=== PATIENT | female | born 1980 | race Two or more races ===

== ENCOUNTER 2017-07-17 17:31 | Emergency (ER) | payer SELFPAY ==
[2017-07-17] MEDS ORDERED: IBUPROFEN 600 MG TAB PO ONE (18:07)
[2017-07-17] MEDS ORDERED: NS 1,000 ML IV ONE ×2 (18:16)
--- NOTE | 2017-07-17 18:20 | EDPHY ---
H & P Time Seen by Provider: 07/17/17 18:05 HPI/ROS: CHIEF COMPLAINT: Sore throat fever and chills HISTORY OF PRESENT ILLNESS: Symptoms for 2 days. Moderate sore throat worse with swallowing associated with fever and body aches. Radiates the left neck and left ears associated with nausea. Able to swallow, no change in voice. REVIEW OF SYSTEMS: Eye: no change in vision ENT: No ear symptoms. Cardiac: no chest pain or syncope Pulmonary: no cough or SOB Abdomen: no vomiting, diarrhea, abdominal pain Musculoskeletal: No neck stiffness Skin: no rash Neuro: no headache Constitutional: HPI : no urinary symptoms A comprehensive 10 point review of systems is otherwise negative aside from elements mentioned in the history of present illness. PAST MEDICAL HISTORY: Includes hysterectomy and appendectomy and cholecystectomy. Renal colic Social history: Nonsmoker General Appearance: Alert and conversant, cooperative. Eyes: No scleral icterus. ENT, Mouth: Tonsillar swelling with some exudate. No trismus. No gum swelling. No stridor or drooling and normal uvula. Normal tympanic membranes bilaterally. Respiratory: Normal respiratory effort, breath sounds equal, lungs are clear to auscultation. Cardiovascular: Regular rate and rhythm. Gastrointestinal: Abdomen is soft and non tender. Neurological: Alert and oriented x3. Normally conversant. Face symmetric, normal movement and sensation in all extremities. Skin: Warm and dry, no rashes. Musculoskeletal: Normal range of motion of the neck. Some lymphadenopathy bilaterally. Psychiatric: Not agitated. Emergency Department course/MDM: Ibuprofen 600, 2 L IV normal saline. Strep screening. Strep negative, dexamethasone discussed and consented for treatment of symptoms. I think retropharyngeal abscess or other deep space neck infection is unlikely. Smoking Status: Never smoked Constitutional: Initial Vital Signs Temperature (C) 37.3 C 07/17/17 17:33 Heart Rate 132 H 07/17/17 17:33 Respiratory Rate 14 07/17/17 17:33 Blood Pressure 146/85 H 07/17/17 17:33 O2 Sat (%) 96 07/17/17 17:33 O2 Delivery Mode Room Air Allergies/Adverse Reactions: zoysn Allergy (Uncoded 10/25/16 15:18) Home Medications: Medication Instructions Recorded IRON 10/25/16 Ondansetron Odt [Zofran Odt] 4 mg PO Q4PRN PRN #4 tab 10/25/16 oxyCODONE/APAP 5/325 [Percocet 1 tab PO Q4-6PRN PRN #14 tab 10/25/16 5/325] Medical Decision Making Differential Diagnosis: Differential considered including but not limited to strep throat, mono, retropharyngeal abscess, epiglottitis. - Data Points Laboratory Results: 07/17/17 07/17/17 Unknown 18:15 Group A Strep Screen NEGATIVE (NEGATIVE) Group A Strep DNA Pending Medications Given: Discontinued Medications Dexamethasone (Decadron Injection) 10 mg IVP EDNOW ONE Stop: 07/17/17 18:47 Last Admin: 07/17/17 18:58 Dose: 10 mg Sodium Chloride (Ns) 1,000 mls @ 0 mls/hr IV ONCE ONE; Wide Open PRN Reason: Protocol Stop: 07/17/17 18:17 Last Admin: 07/17/17 18:17 Dose: 1,000 mls Sodium Chloride (Ns) 1,000 mls @ 0 mls/hr IV EDNOW ONE; Wide Open PRN Reason: Protocol Stop: 07/17/17 18:17 Last Admin: 07/17/17 18:57 Dose: 1,000 mls Ibuprofen (Motrin) 600 mg PO EDNOW ONE Stop: 07/17/17 18:08 Last Admin: 07/17/17 18:16 Dose: 600 mg Departure - Departure Disposition: Home, Routine, Self-Care Clinical Impression: Dehydration Pharyngitis Qualifiers: Pharyngitis/tonsillitis etiology: unspecified etiology Qualified Code(s): J02.9 - Acute pharyngitis, unspecified Condition: Good Instructions: Dehydration (ED), Pharyngitis (ED) Additional Instructions: negative strep test. Referrals: DAVID PATEL [Primary Care Provider] - As per Instructions
[2017-07-17] MEDS ORDERED: DEXAMETHASONE 10 MG/ML VIAL IVP ONE (18:46)
[2017-07-17 20:16] VITALS: BP 127/98; PULSE 114; RESP 20; TEMP 99; O2SAT 96
== END 2017-07-17 20:14 | disposition home or self-care (01) ==
DX: J02.9 Acute pharyngitis, unspecified (principal); E86.0 Dehydration
CPT/HCPCS: 96374; J1100